=== PATIENT | female | born 1985 | race Caucasian/White ===

== ENCOUNTER 2021-04-14 18:53 | Emergency (ER) | payer SELFPAY ==
[~2021-04-14] VITALS: Ht 165 cm; Wt 100.0 kg
[2021-04-14] MEDS ORDERED: TRIM/SULFAMETH 160/800 (SEPTRA DS) TAB PO ONE (19:15)
--- NOTE | 2021-04-14 19:29 | ED Integumentary General ---
General Stated Complaint: L FOOT PAIN Source: patient Exam Limitations: no limitations (ASHLEY DOSS APRN) History of Present Illness Date Seen by Provider: Apr 14, 2021 Time Seen by Provider: 19:26 Initial Comments To ER with pain and redness to the left foot. She has an abrasion on it that she believes might have gotten infected. She does swim in [place]. Initial abrasions occurred about a week ago. Timing/Duration: week Severity: moderate Possible Cause: no cause identified Associated Symptoms: denies symptoms (ASHLEY DOSS APRN) Allergies and Home Medications Allergies Coded Allergies: Penicillins (Verified Allergy, Unknown, 04/14/21) ceftriaxone (Verified Allergy, Unknown, 04/14/21) Home Medications Cephalexin 500 Mg Tablet, 500 MG PO TID Prescribed by: ASHLEY DOSS on 04/14/211930 Hydrocodone/Acetaminophen 1 Each Tablet, 1 TAB PO Q4H PRN for PAIN-MODERATE (5- 7) Prescribed by: ASHLEY DOSS on 04/14/211930 Sulfamethoxazole/Trimethoprim 1 Each Tablet, 1 EACH PO BID Prescribed by: ASHLEY DOSS on 04/14/211930 Patient Home Medication List Home Medication List Reviewed: Yes (ASHLEY DOSS APRN) Review of Systems Review of Systems Constitutional: see HPI EENTM: see HPI Respiratory: no symptoms reported Cardiovascular: no symptoms reported Genitourinary: no symptoms reported Musculoskeletal: no symptoms reported Skin: no symptoms reported Psychiatric/Neurological: No Symptoms Reported Endocrine: No Symptoms Reported Hematologic/Lymphatic: No Symptoms Reported (ASHLEY DOSS APRN) Physical Exam Vital Signs Vital Signs - First Documented 04/14/21 19:02 Temp 36.4 Pulse 97 Resp 20 B/P (MAP) 134/108 (117) Pulse Ox 99 O2 Delivery Room Air (ERASTO ROMAN MD) Vital Signs Capillary Refill : (ASHLEY DOSS APRN) General Appearance: WD/WN, no apparent distress Neck: non-tender, full range of motion Respiratory: no respiratory distress, no accessory muscle use Gastrointestinal: normal bowel sounds, non tender Extremities: normal range of motion, non-tender Neurologic/Psychiatric: alert, normal mood/affect, oriented x 3 Skin: normal color, warm/dry, other (To the medial aspect of the left foot plantar surface is a bulla that has ruptured. A little bit of erythema no significant swelling. To the distal aspect of the second and third toes is some erythema swelling and purulent exudate from a wound. Culture of this was collected and sent to lab. Nothing drainable.) (ASHLEY DOSS APRN) Progress/Results/Core Measures Results/Orders Vital Signs/I&O 04/14/21 04/14/21 19:02 19:35 Temp 36.4 Pulse 97 85 Resp 20 20 B/P (MAP) 134/108 (117) 128/98 Pulse Ox 99 96 O2 Delivery Room Air Room Air (ERASTO ROMAN MD) Departure Impression Primary Impression: Wound infection Disposition: HOME, SELF-CARE Condition: Stable Departure-Patient Inst. Decision time for Depature: 19:28 (ASHLEY DOSS APRN) Referrals: NO,LOCAL PHYSICIAN (PCP/Family) Primary Care Physician Patient Instructions: Laceration Infection ED Add. Discharge Instructions: 1. Wash gently with soap and water twice daily. Take the antibiotics as directed. Return to ER for any worsening. Follow-up with your doctor next week for recheck. Scripts Hydrocodone/Acetaminophen (Hydrocodone-Acetamin 5-325 mg) 1 Each Tablet 1 TAB PO Q4H PRN for PAIN-MODERATE (5-7), #10 TAB Prov: ASHLEY DOSS APRN 04/14/21 Cephalexin (Cephalexin) 500 Mg Tablet 500 MG PO TID, #21 TAB Prov: ASHLEY DOSS APRN 04/14/21 Sulfamethoxazole/Trimethoprim (Bactrim Ds Tablet) 1 Each Tablet 1 EACH PO BID, #14 TAB Prov: ASHLEY DOSS APRN 04/14/21 Attending physician statement: I was physically present as attending physician in the emergency department during the care of this patient, but I was not directly involved in this patient's care or in the decision making of this patient's case. (ERASTO ROMAN MD) ASHLEY DOSS APRN Apr 14, 2021 19:29 ERASTO ROMAN MD Apr 15, 2021 20:09
[2021-04-14] MEDS ORDERED: CEPH500T PO (19:31)
[2021-04-14] MEDS ORDERED: ACHD5005 PO (19:31)
[2021-04-14] MEDS ORDERED: SULF1TAB35 PO (19:31)
[2021-04-14 19:35] VITALS: BP 128/98
== END 2021-04-14 19:35 | disposition home or self-care (01) ==
LOC: ER 18:56
DX: T81.49XA Infection following a procedure, other surgical site, initial encounter (principal)
CPT/HCPCS: 87070; 87077; 87186; 87205; 99283